=== PATIENT | male | born 1945 | race African-American/Black ===

== ENCOUNTER → 2018-04-13 | Outpatient (CLI) | payer MEDICARE, OTHER ==
[~2018-04-13] MED LIST: NORVASC 5MG5 MG/TAB; NORVASC 5MG5 MG/TAB PO; PROAIR HFA0.09 MG/AC IH; RT ADVAIR HFA 2312 G; RT ADVAIR HFA 2312 G IH
== END ==
LOC: COL.RAD 10:13
DX: N13.0 Hydronephrosis with ureteropelvic junction obstruction (principal); Z53.9 Procedure and treatment not carried out, unspecified reason